=== PATIENT | female | born 1990 | race Caucasian/White ===

== ENCOUNTER 2017-01-26 03:21 | Emergency (ER) | payer MEDICAID ==
[~2017-01-26] VITALS: Ht 170.2 cm; Wt 95.7 kg
[~2017-01-26 03:21] MED LIST: PRILOSEC20 MG PO
[2017-01-26 04:33] VITALS: BP 130/80
== END 2017-01-26 04:33 | disposition home or self-care (01) ==
LOC: ED 03:21
DX: K80.50 Calculus of bile duct without cholangitis or cholecystitis without obstruction (principal); R11.0 Nausea; Z79.899 Other long term (current) drug therapy
CPT/HCPCS: J1170; J2765

== ENCOUNTER 2020-06-08 16:15 | Emergency (ER) | payer OTHER ==
[~2020-06-08] VITALS: Ht 170.2 cm; Wt 122.5 kg
[2020-06-08 16:17] VITALS: BP 144/91; Ht 170.2 cm; Wt 122.5 kg
== END 2020-06-08 17:20 | disposition home or self-care (01) ==
LOC: ED 16:15
DX: K21.9 Gastro-esophageal reflux disease without esophagitis (principal); R11.2 Nausea with vomiting, unspecified; R10.13 Epigastric pain; Z90.49 Acquired absence of other specified parts of digestive tract
CPT/HCPCS: Q0162

== ENCOUNTER 2020-07-19 12:42 | Emergency (ER) | payer OTHER ==
[~2020-07-19] VITALS: Ht 170.2 cm; Wt 120.2 kg
[2020-07-19 12:51] VITALS: Ht 170.2 cm; Wt 120.2 kg
[2020-07-19 14:50] VITALS: BP 147/86
== END 2020-07-19 15:35 | disposition home or self-care (01) ==
LOC: ED 12:42
DX: E04.1 Nontoxic single thyroid nodule (principal); R07.0 Pain in throat; K21.9 Gastro-esophageal reflux disease without esophagitis
CPT/HCPCS: J1885; Q0092

== ENCOUNTER 2020-07-23 19:37 | Emergency (ER) | payer OTHER ==
[~2020-07-23] VITALS: Ht 170.2 cm; Wt 119.8 kg
[2020-07-23 20:22] VITALS: BP 146/93
== END 2020-07-23 20:20 | disposition home or self-care (01) ==
LOC: ED 19:37
DX: T78.40XA Allergy, unspecified, initial encounter (principal); L50.9 Urticaria, unspecified; K21.9 Gastro-esophageal reflux disease without esophagitis; Z86.2 Personal history of diseases of the blood and blood-forming organs and certain disorders involving the immune mechanism; X58.XXXA Exposure to other specified factors, initial encounter
CPT/HCPCS: J2930

== ENCOUNTER 2020-08-05 12:43 | Emergency (ER) | payer OTHER ==
[~2020-08-05] VITALS: Ht 170.2 cm; Wt 121.1 kg
[2020-08-05 12:55] VITALS: BP 147/93; Ht 170.2 cm; Wt 121.1 kg
== END 2020-08-05 15:43 | disposition left against medical advice (07) ==
LOC: ED 12:43
DX: Z53.21 Procedure and treatment not carried out due to patient leaving prior to being seen by health care provider (principal)